=== PATIENT | female | born 1965 | race Caucasian/White ===

== ENCOUNTER → 2017-01-31 | Outpatient (CLI) | payer OTHER ==
[~2017-01-31] MED LIST: ALBUTEROL-200 PUFFS/ IH; LORTAB 5/500 501 TAB PO; NAPROSYN 500MG500 MG PO
--- NOTE | 2017-02-02 19:14 | RADIOLOGY REPORT PS360 ---
DIG MAMM-SCREEN PAM W/CAD CAD Screening ORDERING PHYSICIAN : MATT BHATT PATIENT AGE: 52 years GENDER: Female COMPARISON: Previous mammograms: June also June 2010 and 2008 study used for comparison. INDICATION: Routine screening 52-year-old with no hormones no new complaints. Family history. Mother with breast cancer. Maternal grandmother as well. TECHNIQUE: Standard CC and MLO images were obtained. R2 CAD reviewed. FINDINGS: Density at the retroareolar region region bilaterally again noted with nothing some ductal prominence in the immediate retroareolar region and residual fibroglandular elements here.. No dominant mass nor suspicious calcifications. No significant new findings. Bilateral follow-up in one year recommended. IMPRESSION: Stable bilateral mammogram. Follow-up in one recommended. BI-RADS CATEGORY: 1_Negative RECOMMENDED FOLLOWUP: 12M 12 MONTH FOLLOW-UP (A letter has been sent to the patient regarding results of the study.)
== END ==
LOC: RAD 10:49
DX: Z12.31 Encounter for screening mammogram for malignant neoplasm of breast (principal)
CPT/HCPCS: G0202

== ENCOUNTER → 2017-03-07 | Outpatient (CLI) | payer OTHER ==
--- NOTE | 2017-03-07 17:42 | RADIOLOGY REPORT PS360 ---
EXAM: LUMBAR SPINE 5 VIEWS HISTORY: LUMBOSACRAL, LEFT SIDED LOW BACK PAIN, ORDERING PHYSICIAN: Ted Valdovinos MD PATIENT AGE: 52 years COMPARISON: None FINDINGS: Normal alignment. No fracture or dislocation. There is slight decrease in the L5-S1 disc space. Mild facet arthritic changes are present at L4-L5 and L5-S1 greater on the left. No lytic or blastic change. IMPRESSION: Lumbar spondylosis with degenerative disc disease at L5-S1 and facet arthritic change from L4 to S1
== END ==
LOC: RAD 15:48
DX: M54.5 Low back pain (principal)